=== PATIENT | male | born 1985 | race Caucasian/White ===

== ENCOUNTER 2019-03-01 14:37 | Emergency (ER) | payer OTHER ==
[2019-03-01 14:51] VITALS: BP 149/85
--- NOTE | 2019-03-01 15:06 | UC ---
Skin Complaint HPI - HPI Summary HPI Summary: 33-year-old male comes in with a chief complaint of insect bites to his left lower leg. He got these couple days ago. He is on the medial aspect of his lower leg that the redness is increasing. He did not see any ticks that he is wondering if this is erythema migrans. No fevers no chills feels well otherwise. - History of Current Complaint Chief Complaint: UCSkin Time Seen by Provider: 03/01/19 14:54 Stated Complaint: BUG BITE Pain Intensity: 1 - Allergy/Home Medications Allergies/Adverse Reactions: Allergies Allergy/AdvReac Type Severity Reaction Status Date / Time No Known Allergies Allergy Verified 03/01/19 14:52 PMH/Surg Hx/FS Hx/Imm Hx Previously Healthy: Yes - Surgical History Surgical History: Yes Surgery Procedure, Year, and Place: as child, right forearm surgery - Family History Known Family History: Positive: Non-Contributory - Social History Alcohol Use: Weekly Substance Use Type: None Smoking Status (MU): Never Smoked Tobacco Review of Systems All Other Systems Reviewed And Are Negative: Yes Constitutional: Positive: Negative Skin: Positive: Other - SEE HPI Eyes: Positive: Negative ENT: Positive: Negative Respiratory: Positive: Negative Cardiovascular: Positive: Negative Gastrointestinal: Positive: Negative Motor: Positive: Negative Neurovascular: Positive: Negative Musculoskeletal: Positive: Negative Neurological: Positive: Negative Psychological: Positive: Negative Is Patient Immunocompromised?: No Physical Exam Triage Information Reviewed: Yes Appearance: Well-Appearing, No Pain Distress, Well-Nourished Vital Signs: Initial Vital Signs Temp 98 F 03/01/19 14:47 Pulse 73 03/01/19 14:47 Resp 16 03/01/19 14:47 BP 149/85 03/01/19 14:47 Pulse Ox 100 03/01/19 14:47 Vital Signs Reviewed: Yes Eye Exam: Normal Eyes: Positive: Conjunctiva Clear Neck: Positive: Supple Respiratory: Positive: No respiratory distress Musculoskeletal Exam: Normal Musculoskeletal: Positive: Strength Intact, ROM Intact Neurological: Positive: Alert, Muscle Tone Normal Psychological: Positive: Age Appropriate Behavior Skin: Positive: Other - LEFT MEDIAL LOWER LEG 2CM AREA OF ERYTHEMA WITHOUT CENTRAL CLEARING. NO DRAINAGE. Course/Dx - Course Course Of Treatment: The rash does not have the appearance of erythema migrans. We discussed erythema migrans and the signs and symptoms of Lyme disease and also of cellulitis. At this time the patient prefers to have a prescription for the treatment for Lyme so that if this turns into a bull's-eye rash or the has symptoms of Lyme disease he can be treated. - Diagnoses Provider Diagnosis: Insect bite of leg, left Discharge - Sign-Out/Discharge Documenting (check all that apply): Patient Departure All imaging exams completed and their final reports reviewed: No Studies - Discharge Plan Condition: Stable Disposition: HOME Prescriptions: DOXYcycline CAP(*) [DOXYcycline 100MG CAP(*)] 100 mg PO BID #28 cap Patient Education Materials: Insect Bite or Sting (ED) Referrals: [facility] [place] [facility] [Outside] Additional Instructions: FOLLOW UP WITH YOUR DOCTOR IF NOT COMPLETELY IMPROVED. TREATMENT OF A TICK BITE WITH BULLS EYE RASH OR LYME DISEASE IS DOXYCYCLINE 100MG TWICE A DAY FOR 14 DAYS. TREATMENT FOR A TICK BITE WITH NO BULLS EYE RASH OR LYME DISEASE SYMPTOMS IS A SINGLE DOSE OF DOXYCYCLINE 200MG ONCE. GET RECHECKED SOONER IF YOUR CONDITION WORSENS; SYMPTOMS OF LYME DISEASE OR ANY QUESTIONS OR CONCERNS. - Billing Disposition and Condition Condition: STABLE Disposition: Home
== END 2019-03-01 15:10 | disposition home or self-care (01) ==
LOC: UCEAST 14:37
DX: S80.862A Insect bite (nonvenomous), left lower leg, initial encounter (principal); W57.XXXA Bitten or stung by nonvenomous insect and other nonvenomous arthropods, initial encounter; Y93.9 Activity, unspecified
CPT/HCPCS: 99202; G0463